=== PATIENT | female | born 1975 | race Caucasian/White ===

== ENCOUNTER 2016-09-02 17:17 | Emergency (ER) | payer MEDICAID, OTHER ==
[~2016-09-02] VITALS: Ht 154.9 cm; Wt 69.5 kg
[~2016-09-02 17:17] MED LIST: CIPR500T4 PO; GLIP5 PO; GLUCTAB PO; LOSA50TA PO; WAL-10TA2 PO
[2016-09-02 17:34] VITALS: BP 137/87; PULSE 75; RESP 18; TEMP 98.7; O2SAT 97
--- NOTE | 2016-09-02 17:45 | PD ---
HPI Chief Complaint: Complaint Time Seen by Provider: 17:44 Travel History International Travel<30 days: No Contact w/Intl Traveler<30days: No Traveled to known affect area: No History of Present Illness HPI 41-year-old female presents to the emergency department with question UTI with lower back pain for the past week. PFSH Past Medical History Cardiovascular Problems: Yes (HTN) High Cholesterol: Yes Diabetes: Yes (METFORMIN & GLIPIZIDE) Diminished Hearing: No Hypertension: Yes Reproductive: Yes (OVARIAN CYSTS) Tubal Ligation: Yes Past Surgical History Section: Yes Other Surgery: Yes (LYPOMA to right arm) Social History Alcohol Use: No Tobacco Use: Yes (5-6 CIG/DAY) Substance Use: No Allergies-Medications (Allergen,Severity, Reaction): Coded Allergies: No Known Allergies (Verified , 09/02/16) Reported Meds & Prescriptions Reported Meds & Active Scripts Active Reported Gemfibrozil 600 Mg Tab 600 Mg PO BIDAC Take 30 minutes prior to breakfast and dinner. Niacin 100 Mg Tab 100 Mg PO BID Losartan (Losartan Potassium) 50 Mg Tab 50 Mg PO BID Metformin (Metformin HCl) 500 Mg Tab 500 Mg PO BIDPC With meals Glipizide 5 Mg Tab 5 Mg PO BIDAC Take 30 minutes before a meal Physical Exam Narrative GENERAL: Patient appears no acute distress. SKIN: Warm and dry. Normal color. Normal turgor. HEAD: Atraumatic. Normocephalic. EYES: Pupils equal and round. No scleral icterus. No injection or drainage. ENT: No nasal bleeding or discharge. Mucous membranes pink and moist. Pharynx is normal. NECK: Trachea midline. No JVD. CARDIOVASCULAR: Regular rate and rhythm. RESPIRATORY: No accessory muscle use. Clear to auscultation. Breath sounds equal bilaterally. GASTROINTESTINAL: Abdomen soft, non-tender, nondistended. Hepatic and splenic margins not palpable. No CVA tenderness. MUSCULOSKELETAL: Extremities without clubbing, cyanosis, or edema. No obvious deformities. Mild lower lumbar soft tissue tenderness bilaterally. No sciatic symptoms. NEUROLOGICAL: Awake and alert. No obvious cranial nerve deficits. Motor grossly within normal limits. Five out of 5 muscle strength in the arms and legs. Normal speech. PSYCHIATRIC: Appropriate mood and affect; insight and judgment normal. Data Data Last Documented VS Vital Signs Date Time Temp Pulse Resp B/P Pulse Ox O2 Delivery O2 Flow Rate FiO2 09/02/16 17:34 98.7 75 18 137/87 97 Orders Urinalysis - C+S If Indicated (09/02/16 17:45) Labs Laboratory Tests Test 09/02/16 17:55 Urine Color YELLOW Urine Turbidity HAZY Urine pH 7.0 Urine Specific [place] 1.020 Urine Protein NEG mg/dL Urine Glucose (UA) 100 mg/dL Urine Ketones NEG mg/dL Urine Occult Blood NEG Urine Nitrite NEG Urine Bilirubin NEG Urine Leukocyte Esterase TRACE Urine RBC 0-3 /hpf Urine WBC 3-5 /hpf Urine Squamous Epithelial 0-5 /hpf Cells Urine Amorphous Sediment MOD Microscopic Urinalysis Comment CULT NOT INDICATED MDM Medical Decision Making Medical Screen Exam Complete: Yes Emergency Medical Condition: Yes Differential Diagnosis Urinary tract infection. Muscle skeletal low back pain. Lumbago Narrative Course Patient is medically stable at time of exam. Urinalysis shows no signs of infection or other issue. Patient is felt stable to be discharged home. Patient is to take Naprosyn 500 mg twice a day when necessary #20. Patient is to push fluids and watch her sugars. Patient follow-up with her primary care physician as needed. Diagnosis Primary Impression: Low back pain Qualified Code: M54.5 - Acute bilateral low back pain without sciatica Referrals: Primary Care Physician Patient Instructions: Acute Low Back Pain (ED), General Instructions Additional Instructions: Urinalysis shows no signs of infection or other issue. Patient is felt stable to be discharged home. Patient is to take Naprosyn 500 mg twice a day when necessary #20. Patient is to push fluids and watch her sugars. Patient follow-up with her primary care physician as needed. Med/Other Pt SpecificInfo: Prescription(s) given Disposition: 01 DISCHARGE HOME Condition: Stable Tobi Platt Sep 02, 2016 17:45
[2016-09-02] MEDS ORDERED: GLIP5TAB8 PO (17:51)
[2016-09-02] MEDS ORDERED: METF500T PO (17:51)
[2016-09-02] MEDS ORDERED: GEMF600T PO (17:52)
[2016-09-02] MEDS ORDERED: LOSA50TA PO (17:52)
[2016-09-02] MEDS ORDERED: NIAC100T2 PO (17:52)
[2016-09-02 18:06] LABS: BLOOD, URINE NEG (NEG); GLUCOSE,URINE 100 mg/dL (NEG); KETONE, URINE NEG (NEG); NITRITE,URINE NEG (NEG)
[2016-09-02 18:13] LABS: URINE COLOR YELLOW (YELLW/STRAW)
[2016-09-02 18:14] LABS: COMMENT (UR) CULT NOT INDICATED; CULTURE IF INDICATED CULT NOT INDICATED; RBC, URINE 0-3 /hpf (0-3); SQUAMOUS EPITHELIAL CELL URINE 0-5 /hpf (0-5)
[2016-09-02] MEDS ORDERED: NAPR500 PO (18:28)
== END 2016-09-02 18:55 | disposition home or self-care (01) ==
LOC: PHEFT 17:17
DX: M54.5 Low back pain (principal); I10 Essential (primary) hypertension; E78.00 Pure hypercholesterolemia, unspecified; E11.9 Type 2 diabetes mellitus without complications; Z79.4 Long term (current) use of insulin
CPT/HCPCS: 81001; 99283